=== PATIENT | male | born 1970 | race Caucasian/White ===

== ENCOUNTER 2016-11-11 02:38 | Observation (INO) | payer OTHER ==
[~2016-11-11] VITALS: Ht 182.9 cm; Wt 97.1 kg
--- NOTE | ~2016-11-11 | EKG ---
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
--- NOTE | ~2016-11-11 | EKG ---
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1970 Requested By: Tony Aceves Order Number: [id number] MD: Jagdish Schumacher Measurements Intervals [place] Rate: 60 P: 30 NE: 156 QRS: 60 QRSD: 100 T: 48 QT: 440 QTc: 440 Interpretive Statements Sinus rhythm ST elev, probable normal early repol pattern Compared to ECG 11/11/2016 02:58:06 No significant change was found Electronically Signed On 11-12-2016 9:22:38 CDT by Jagdish Schumacher [email or web address] <ELECTRONICALLY SIGNED> By: Jagdish Schumacher MD, [facility] 11/12/16 09 0325 0325 Jagdish Schumacher MD, [facility] /EPI
[~2016-11-11 02:38] MED LIST: FLOMAX PO; IBUPROFEN 600600 M1 PO; NORCO 5-325 TA1 EACH PO; PHENERGAN 25 MG25 M1 PO; ZOFRAN 4 MG ORAL4 M1 DIS
[2016-11-11 02:46] VITALS: BP 174/106
[2016-11-11 03:42] LABS: ABSOLUTE NEUTROPHILS 7.1 thou/uL (1.4-8.2); BASOPHILS 1.2 % (0.0-2.0); EOSINOPHILS 1.7 % (0.0-3.0); HEMATOCRIT 47.2 % (42.0-52.0); HEMOGLOBIN 16.3 gm/dL (14.0-18.0); LYMPHOCYTES 38.1 % (24.0-44.0); MCH 31.2 pg (26.0-34.0); MCHC 34.5 g/dL (28.0-37.0); MCV 90.5 fL (80.0-100.0); MONOCYTES 5.8 % (1.0-8.0); PLATELET COUNT 290 thou/uL (150-400); POLYS 53.2 % (36.0-66.0); RBC 5.22 mil/uL (4.50-6.00); RDW 13.5 % (10.5-14.5); WBC 13.4 thou/uL (4.0-11.0)
[2016-11-11 03:43] LABS: MANUAL DIFF NO
[2016-11-11 03:49] LABS: ANION GAP 13 mmol/L (7-16); BUN 22 mg/dL (7-18); CALCIUM 9.1 mg/dL (8.5-10.1); CHLORIDE 105 mmol/L (98-107); CO2 21 mmol/L (21-32); CREATININE 1.3 mg/dL (0.7-1.3); GLUCOSE 140 mg/dL (74-106); POTASSIUM 3.9 mmol/L (3.5-5.1); SODIUM 139 mmol/L (136-145)
[2016-11-11 03:51] LABS: APTT 30.2 Seconds (24.5-32.8)
[2016-11-11 03:59] LABS: ALKALINE PHOSPHATASE 83 U/L (46-116); MAGNESIUM 2.1 mg/dL (1.8-2.4); NT-PRO BRAIN NAT PEPTIDE 33 pg/mL (<300); SGOT 18 U/L (15-37); SGPT 34 U/L (30-65); TOTAL BILIRUBIN 0.3 mg/dL (<0.1-1.0); TOTAL PROTEIN 8.1 g/dL (6.4-8.2); TROPONIN-I < 0.04 ng/mL (<0.04-0.07)
[2016-11-11 07:05] VITALS: BP 166/107
[2016-11-11 07:55] VITALS: BP 154/103
[2016-11-11 13:05] VITALS: BP 146/99
[2016-11-11 17:05] VITALS: BP 144/103
[2016-11-11 20:23] VITALS: BP 155/96
[2016-11-11 23:08] LABS: GLYCOHEMOGLOBIN (HGB A1C) 5.2 % (4.8-5.6)
[2016-11-12 03:26] LABS: HEMATOCRIT 46.1 % (42.0-52.0); HEMOGLOBIN 15.6 gm/dL (14.0-18.0); MCH 30.7 pg (26.0-34.0); MCHC 33.9 g/dL (28.0-37.0); MCV 90.5 fL (80.0-100.0); RBC 5.1 mil/uL (4.50-6.00); RDW 13.8 % (10.5-14.5)
[2016-11-12 03:37] LABS: CALCIUM 8.9 mg/dL (8.5-10.1); POTASSIUM 3.9 mmol/L (3.5-5.1)
[2016-11-12 04:45] VITALS: BP 125/92
[2016-11-12 07:50] VITALS: BP 140/86
[2016-11-12 09:52] LABS: CHOLESTEROL 245 mg/dL (<200); HDL CHOLESTEROL 42 mg/dL (>40); LDL CHOLESTEROL 166 mg/dL (<100); TC:HDL 5.8 Ratio (Not establshd); TRIGLYCERIDE 185 mg/dL (<150); VLDL 37 mg/dL (<40)
[2016-11-12 12:05] VITALS: BP 124/92
[2016-11-12] MEDS ORDERED: NORVASC10 MG PO (12:32)
[2016-11-12] MEDS ORDERED: ASPIR 8181 MG PO (12:33)
[2016-11-12] MEDS ORDERED: PROTONIX40 M1 PO (12:33)
[2016-11-12 12:47] VITALS: BP 140/86
== END 2016-11-12 13:00 | disposition home or self-care (01) ==
LOC: ER 02:38 → 2N 06:01 → EROBS 06:01 → 2N 07:05
PROVIDERS: Emergency Medicine; Hospitalist; Nurse Practitioner Adult Health
DX: R07.89 Other chest pain (principal); I10 Essential (primary) hypertension; M54.9 Dorsalgia, unspecified; R73.09 Other abnormal glucose; F17.200 Nicotine dependence, unspecified, uncomplicated
CPT/HCPCS: 10081

== ENCOUNTER → 2016-11-23 | Outpatient (CLI) | payer OTHER ==
[~2016-11-23] MED LIST changes: +ASPIR 8181 MG PO; +NORVASC10 MG PO; +PROTONIX40 M1 PO
--- NOTE | ~2016-11-23 | EXE ---
[facility] [place] [address] STRESS ECHOCARDIOGRAM Name: AUSTIN PATTERSON Room #: REG [place] Mon#: [id number] Admission: 11/23/16 Attend Phys: Justin Hamilton Discharge: Date of : 66 Date of Service: 11/26/161811 Report #: [id number] THIS REPORT FOR: //name// APPROVED REPORT Exam: Stress Echocardiogram Indication: Chest pain Patient Location: Out-Patient Stress Nurse: Damari Roca RN Status: routine HR: 84 bpm Rhythm: NSR Medical History Medical History: HTN Allergies: No known drug allergies Procedure The patient underwent an Exercise Stress Test using the Javon Protocol. Blood pressure, heart rate, and EKG were monitored. An Echocardiogram was performed by battery service technician in four stages in quad fashion. At peak stress, four selected images were obtained and placed side by side with resting images for comparison. Stress Test Details Stress Test: Exercise stress testing was performed using a Javon protocol. HR Resting HR: 84 bpm Max Heart Rate (APMHR): 172 bpm Max HR Achieved: 179 bpm Target HR (85% APMHR): 146 bpm % of APMHR: 104 Recovery HR: 114 bpm HR response to stress: Normal HR response to stress BP Resting BP: 142/93 mmHg Max BP: 174/96 mmHg Recovery BP: 138/78 mmHg ECG Resting ECG: Sinus Rhythm Stress ECG: Sinus Tachycardia Arrhythmia: None Recovery ECG: Sinus Rhythm [facility] [address] [place] [address] STRESS ECHOCARDIOGRAM Name: AUSTIN PATTERSON Room #: REG [facility]#: [id number] Admission: 11/23/16 Attend Phys: Justin Hamilton Discharge: Date of : 66 Date of Service: 11/26/161811 Report #: [id number] Clinical Reason for Termination: Moderate fatigue, target HR reached Exercise duration: 12 min 30 sec Exercise capacity: 15.6 METs Stress ECG Conclusion 1. SUBJECTIVELY NEGATIVE FOR ISCHEMIA 2. ELECTRICALLY NEGATIVE FOR ISCHEMIA 3. SATISFACTORY FUNCTIONAL CAPACITY Pre-Stress Echo The resting Echocardiogram showed normal left ventricular contractility with an estimated Ejection Fraction of about 60-65%. No significant valvular abnormalities noted. Post-Stress Echo The stress Echocardiogram showed normal left ventricular contractility with an estimated Ejection Fraction of about >70%. Normal augmentation of wall motion in all segments on post stress images. Clinical No clinical or ECG evidence for ischemia. Conclusion Clinical Response: Non-ischemic Exercise Capacity: Superior Stress ECG Response: Non-ischemic Stress Echo Images: Non-ischemic 1. LOW RISK STUDY Other Information Study Quality: Adequate/lung artifact <Conclusion> 1. LOW RISK STUDY <ELECTRONICALLY SIGNED> By: Justin Winn MD 11/26/161811 11 11 Justin Winn MD /INF
== END ==
LOC: CV 08:25
DX: R07.9 Chest pain, unspecified (principal)

== ENCOUNTER → 2017-07-30 | Outpatient (CLI) | payer OTHER | LOC: CAT 05:57 | DX: Z13.6 Encounter for screening for cardiovascular disorders (principal) ==